=== PATIENT | female | born 1935 | race Two or more races ===

== ENCOUNTER 2023-07-23 20:55 | Emergency (ER) | payer OTHER, SELFPAY ==
[2023-07-23] VITALS (7 sets, daily range): BP systolic 119–142; BP diastolic 85–93; PULSE 85–104; RESP 12–16; TEMP 36.2; O2SAT 94–97; BMI 31.2
--- NOTE | 2023-07-23 22:00 | CRLHL7_ITS ---
For Patients: As a result of the Cures Act, medical imaging exams and procedure reports are released immediately into your electronic medical record. You may view this report before your referring provider. If you have questions, please contact your health care provider. Indication: Shoulder pain. Technique: Right shoulder 3 views. Comparison: None. Findings: Bones: No fracture or bone lesion. Degenerative changes in the undersurface of the acromion. Joint spaces: Severe narrowing of the subacromial space consistent with severe rotator cuff disease. Mild arthritic changes in the AC and glenohumeral joints. Soft tissues: Unremarkable. Dictated by Kobe Finch MD @ 07/23/2023 11:01:43 PM (Electronically Signed)
--- NOTE | 2023-07-23 22:00 | CRLHL7_ITS ---
For Patients: As a result of the Century Cures Act, medical imaging exams and procedure reports are released immediately into your electronic medical record. You may view this report before your referring provider. If you have questions, please contact your health care provider. INDICATION: History of head bleed, neck pain. TECHNIQUE: CT head without contrast. Permanently recorded images are archived. COMPARISON: None. FINDINGS: CSF spaces: Within normal limits for age. Brain parenchyma and extra-axial spaces: Mild global brain parenchymal volume loss. Areas of mild hypoattenuation within the bilateral supratentorial white matter, consistent with chronic small vessel ischemic disease. The krishnan-white differentiation is normal. No sign of mass, hemorrhage, or midline shift. No extra-axial fluid collection. Skull base and calvarium: The visualized paranasal sinuses demonstrate no acute or significant findings. The mastoid air cells are clear. Bilateral lens replacement. No skull fractures. Atherosclerotic calcification of the bilateral carotid siphons. IMPRESSION: No evidence of an acute intracranial abnormality. Brain parenchyma findings consistent with chronic small vessel ischemic disease on a background of age-related involutional change. Please note that all CT scans at this facility use dose modulation, iterative reconstruction, and/or weight-based dosing when appropriate to reduce radiation dose to as low as reasonably achievable. Dictated by Jeffrey Higgins MD @ 07/23/2023 11:06:13 PM (Electronically Signed)
--- NOTE | 2023-07-23 22:01 | CRLHL7_ITS ---
For Patients: As a result of the Century Cures Act, medical imaging exams and procedure reports are released immediately into your electronic medical record. You may view this report before your referring provider. If you have questions, please contact your health care provider. INDICATION: Neck pain. TECHNIQUE: CT cervical spine without contrast. Permanently recorded images are archived. COMPARISON: None. FINDINGS: Vertebrae: Straightening of the cervical lordosis. Grade 1 anterolisthesis of C4 on C5 and C6 on C7. No acute fracture or suspicious lesion. Discs and facet joints: Moderate degenerative disc disease at C5-6. There are mild multilevel degenerative changes in the facets. Extraspinal findings: Paraspinous soft tissues are unremarkable. IMPRESSION: 1. No sign of acute injury. 2. Moderate degenerative disc disease at C5-6. Please note that all CT scans at this facility use dose modulation, iterative reconstruction, and/or weight-based dosing when appropriate to reduce radiation dose to as low as reasonably achievable. Dictated by Jeffrey Higgins MD @ 07/23/2023 11:09:22 PM (Electronically Signed)
--- NOTE | 2023-07-23 22:21 | ED.GENADULT ---
HPI - General Adult General Date Seen: 07/23/23 Chief complaint: Neck Injury/Pain Stated complaint: Neck pain Time Seen by Provider: 07/23/23 21:12 Source: patient, family and lens gauger Mode of arrival: ambulatory Limitations: language barrier History of Present Illness HPI narrative: Patient is an 88-year-old woman here with her daughter and niece for evaluation of what she describes as neck pain, some pain in the right side of her head in the back, and primarily actually more shoulder pain. She does not have pain that radiates further down the arm. She developed pain when she woke up about 6 days ago, they describe feeling hot and cold at home but no documented fevers. She has not had any neurologic changes in her hand, notes that she has numbness in both hands which has been going on for quite some time. No weakness. No injury. Pain is worsened by trying to use her right arm or moving leave shoulder. She was seen in clinic last week and was given cyclobenzaprine which she has been taking along with Tylenol but her daughter says that she still is having too much pain to sleep. Her daughter also says that a couple of years ago, while still in [facility] she had some kind of problem which she describes as blood clots in her head, it is unclear to me whether this was bleeding or ischemic, she does not call it a stroke. No neurologic deficit. There was apparently discussion in [facility] of either emboli or embolization, again she really does not know and then they left [facility] and it has not been checked since coming to the [place] Related Data Home Medications Medication Instructions Recorded Confirmed metformin 1,000 mg tablet 1,000 mg PO BID 03/31/23 07/23/23 omeprazole 20 mg capsule,delayed 20 mg PO DAILY PRN 03/31/23 07/23/23 release cyclobenzaprine 5 mg tablet 5 mg PO BID 07/23/23 07/23/23 glipizide 2.5 mg tablet, extended 2.5 mg PO DAILY 07/23/23 07/23/23 release 24 hr Allergies Allergy/AdvReac Type Severity Reaction Status Date / Time No Known Drug Allergies Allergy Verified 07/23/23 21:17 Review of Systems Status of ROS: Reports: 10 or more systems reviewed and unremarkable except as noted in History and below [facility] Medical History Hypertension ?I10 - Essential (primary) hypertension (ICD-10) Diabetes mellitus, type 2 ?E11.9 - Type 2 diabetes mellitus without complications (ICD-10) Osteoporosis ?M81.0 - Age-related osteoporosis without current pathological fracture (ICD-10) Surgical History No significant past surgical history Social History Smoking Status: Never smoker Second hand tobacco smoke exposure: No How often do you have a drink containing alcohol: never How often do you have six or more drinks on one occasion: Never AUDIT-C Alcohol total score: 0 Non-prescribed substance use: denies use Exam Narrative: Exam Narrative: Vital signs as noted above. In general, an alert, well-appearing patient. Head: Normocephalic, atraumatic. Eyes: Pupils are equal reactive. Extraocular movements are full. Conjunctivae are normal. ENT: Mucous membranes are moist. Neck: Supple without lymphadenopathy. Heart: Regular rate and rhythm. No murmur or rub. Lungs: Clear bilaterally. No increased work of breathing, crackles or wheezes. Abdomen: Soft and nontender. No organomegaly. Extremities: Well perfused. No edema. No calf tenderness. Pulses intact. Neurologic: Patient is alert and oriented to person and place. Speech is fluent. Face is symmetric. Moves all extremities equally. Affect: Normal. Skin: Warm and dry. Well perfused. Const: Vital Signs, click to edit/add: Vital Signs - 24 hr 07/23/23 21:10 07/23/23 22:04 07/23/23 22:05 Temperature 97.2 F L Pulse Rate 97 104 H Pulse Rate [Pulse Oximeter] 102 H Respiratory Rate 16 Blood Pressure 119/85 Blood Pressure [Le ft Upper Arm] 122/93 H Pulse Oximetry 94 96 96 Oxygen Delivery Me thod Room Air 07/23/23 22:35 07/23/23 22:36 07/23/23 23:01 Temperature Pulse Rate 95 92 85 Pulse Rate [Pulse Oximeter] Respiratory Rate 14 12 Blood Pressure 127/92 H 142/91 H Blood Pressure [Le ft Upper Arm] Pulse Oximetry 95 96 96 Oxygen Delivery Me thod 07/23/23 23:31 07/24/23 00:01 Temperature Pulse Rate 89 86 Pulse Rate [Pulse Oximeter] Respiratory Rate 14 12 Blood Pressure 133/91 H 137/90 H Blood Pressure [Le ft Upper Arm] Pulse Oximetry 97 96 Oxygen Delivery Me thod Course Course ED Course: Given the uncertainty surrounding what ever happened intracranially a couple of years ago, language barrier, age, etcetera I elected to do a CT scan of the head as well as the cervical spine. However I also did x-rays of the right shoulder is to me it seems that most of her pain comes from the shoulder region, and is exacerbated by trying to move that joint. CT of the head by my review did not show any evidence of hemorrhage or mass effect, read as negative by Radiology for acute findings. CT of the cervical spine was read by Radiology is overall unremarkable, some moderate degenerative changes noted at C5-C6. She does not have radicular symptoms, and I do not think her pain is coming primarily from her neck. X-rays of her right shoulder show significant degenerative changes, read as follows by Radiology:Findings: Bones: No fracture or bone lesion. Degenerative changes in the undersurface of the acromion. Joint spaces: Severe narrowing of the subacromial space consistent with severe rotator cuff disease. Mild arthritic changes in the AC and glenohumeral joints. Gave her 2.5 mg of oxycodone here, she did feel that this was significantly helpful. I will provide a few for her use at home, discussed that these can cause sleepiness, dizziness, constipation and that tolerance will develop if she takes them frequently. I recommended orthopedic follow-up to see if an injection might be helpful for her shoulder. Vital Signs Vital signs: Initial Vital Signs Temperature 97.2 F L 07/23/23 21:10 Temperature Source Temporal Artery Scan 07/23/23 21:10 Pulse Rate 102 H 07/23/23 21:10 Respiratory Rate 16 07/23/23 21:10 Blood Pressure 122/93 H 07/23/23 21:10 Blood Pressure Mean 102 07/23/23 21:10 Blood Pressure Position Sitting 07/23/23 21:10 Pulse Oximetry 94 07/23/23 21:10 Oxygen Delivery Method Room Air 07/23/23 21:10 Vital Signs Temperature 97.2 F L 07/23/23 21:10 Pulse Rate 102 H 07/23/23 21:10 Respiratory Rate 16 07/23/23 21:10 Blood Pressure 122/93 H 07/23/23 21:10 Pulse Oximetry 94 07/23/23 21:10 Oxygen Delivery Method Room Air 07/23/23 21:10 Temperature 97.2 F L 07/23/23 21:10 Pulse Rate 86 07/24/23 00:01 Respiratory Rate 12 07/24/23 00:01 Blood Pressure 137/90 H 07/24/23 00:01 Pulse Oximetry 96 07/24/23 00:01 Oxygen Delivery Method Room Air 07/23/23 21:10 Discharge Plan Discharge Clinical Impression: Pain in shoulder region Patient Disposition: Home, Self-Care Condition: Improved Instructions: Shoulder Pain (ED) Additional Instructions: Tylenol 1000 mg 3 times daily. Oxycodone if needed for more severe pain, especially at bedtime. Be aware that this can cause confusion, lightheadedness, dizziness, constipation, and can be habit-forming, take only as directed. I would recommend follow-up with Orthopedic Clinic, call [phone] to schedule. [place] Tylenol 1000 mg 3 veces al d?a. Puede michael oxicodona si es necesario para el dolor m?s intenso, especialmente a la hora de acostarse. Tenga en cuenta que esto puede causar confusi?n, mareos, estre?imiento y puede crear h?bito; t?ngo s?lo seg?n las indicaciones. Recomendar?a seguimiento con Cl?juan carlos Ortop?dica, llame el lunes al [phone] para programar ivey angel. Oxycodone: Doretha media tableta por boca robe veces al zana. Prescriptions: No Action metformin 1,000 mg tablet 1,000 mg PO BID omeprazole 20 mg capsule,delayed release(DR/EC) 20 mg PO DAILY PRN glipizide 2.5 mg tablet extended release 24hr 2.5 mg PO DAILY cyclobenzaprine 5 mg tablet 5 mg PO BID Follow Up/Referrals: Beena Samayoa NP [Primary Care Provider] - Stand Alone Forms: [facility] Info Instructions
[2023-07-23] MEDS: OXYCODONE 5 MG TABLET 2.5 MG PO (22:29)
--- NOTE | 2023-07-23 23:29 | ED.NURSE ---
Report received from CORA Schmidt.
[2023-07-24 00:01] VITALS: BP 137/90; PULSE 86; RESP 12; O2SAT 96
== END 2023-07-24 00:15 | disposition home or self-care (01) ==
PROVIDERS: Emergency Provider Emergency Medicine; PCP Nurse Practitioner Family
DX: M25.511 Pain in right shoulder (principal)
CPT/HCPCS: 70450; 72125; 73030; 99283; 99284; A9270

== ENCOUNTER 2023-10-17 17:05 | Emergency (ER) | payer OTHER, SELFPAY ==
[2023-10-17 17:30] VITALS: BP 181/119; PULSE 90; RESP 20; TEMP 37.1; O2SAT 96
[2023-10-17 17:45] VITALS: O2SAT 96
--- NOTE | 2023-10-17 17:48 | CRLHL7_ITS ---
For Patients: As a result of the Century Cures Act, medical imaging exams and procedure reports are released immediately into your electronic medical record. You may view this report before your referring provider. If you have questions, please contact your health care provider. INDICATION: Rib pain. TECHNIQUE: Chest and left ribs 3 views. COMPARISON: None. FINDINGS: Cardiovascular and mediastinum: Heart size and vasculature are normal in caliber and appearance. Mediastinum is within normal limits. Lungs and pleural spaces: Lungs are clear. No sign of infiltrate or mass. No sign of pleural effusion. No pneumothorax. Bones and soft tissues: Detailed oblique images of the left ribs demonstrate no fractures or bone lesions. IMPRESSION: Unremarkable chest and left ribs. Dictated by Kobe Finch MD @ 10/17/2023 8:19:02 PM (Electronically Signed)
--- NOTE | 2023-10-17 17:49 | ED_ITS ---
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 She is here with family members also who understand very little anguish. The patient reports left-sided rib pain that began about a week ago. She does not report any injury event or strenuous activity. The pain is distinctly worse when taking a deep breath or when performing certain maneuvers. She does not report any shortness of breath. Related Data Home Medications Medication Instructions Recorded Confirmed metformin 1,000 mg tablet 1,000 mg PO BID 03/31/23 07/23/23 omeprazole 20 mg capsule,delayed 20 mg PO DAILY PRN 03/31/23 07/23/23 release cyclobenzaprine 5 mg tablet 5 mg PO BID 07/23/23 07/23/23 glipizide 2.5 mg tablet, extended 2.5 mg PO DAILY 07/23/23 07/23/23 release 24 hr glipizide 5 mg tablet 5 mg PO DAILY 10/17/23 10/17/23 irbesartan 300 1 tab PO DAILY 10/17/23 10/17/23 mg-hydrochlorothiazide 12.5 mg tablet Previous Rx's Medication Instructions Recorded hydrocodone 5 mg-acetaminophen 325 1 tab PO Q4-6H PRN pain #20 tabs 10/17/23 mg tablet Allergies Allergy/AdvReac Type Severity Reaction Status Date / Time No Known Drug Allergies Allergy Verified 07/23/23 21:17 Review of Systems Status of ROS: Reports: 10 or more systems reviewed and unremarkable except as noted in History and below Narrative: Constitutional: No fevers, no weight gain or loss. Eyes: No discharge. No vision changes. HENT: No congestion, no sore throat, no ear pain. Cardiovascular: No palpitations. Respiratory: No shortness of breath, no wheezes, no cough. Gastrointestinal: No abdominal pain, no vomiting, no diarrhea. Genitourinary: No dysuria, no hematuria. Musculoskeletal: Normal range of motion. Skin: No rashes, no pruritis. Neurological: No dizziness, weakness, sensory change, speech change. Endo/Heme/Allergies: No bruising or bleeding. No polydipsia. Pysch: no suicidality, no anxiety, no insomnia. All other systems reviewed and are negative. [facility] Medical History Hypertension ?I10 - Essential (primary) hypertension (ICD-10) Diabetes mellitus, type 2 ?E11.9 - Type 2 diabetes mellitus without complications (ICD-10) Osteoporosis ?M81.0 - Age-related osteoporosis without current pathological fracture (ICD- 10) Surgical History No significant past surgical history Social History Smoking Status: Never smoker Second hand tobacco smoke exposure: No How often do you have a drink containing alcohol: never How often do you have six or more drinks on one occasion: Never AUDIT-C Alcohol total score: 0 Non-prescribed substance use: denies use Exam Narrative: Exam Narrative: Constitutional: Well-developed, well-nourished, no acute distress. HEENT: Normocephalic, atraumatic. Neck: Normal range of motion. Nontender. Supple. Heart: Regular. No murmurs. Normal rate. Intact distal pulses. Lungs: Clear to auscultation. No wheezes, rhonchi, or rales. Chest: Patient has distinct pain when palpating along the left lateral ribs and when taking a deep breath. Abdomen: Normal bowel sounds. Nontender. No rebound tenderness. Genitalia: Deferred. Back: No midline tenderness. Normal range of motion. Extremities: Normal range of motion. No injury. Skin: Intact. No rash. Warm. No erythema or pallor. Neurologic: No altered sensation. No weakness. Alert and oriented. Psychiatric: No suicidality. No anxiety or depression. No insomnia. Nursing notes and vitals signs are reviewed. Const: Vital Signs, click to edit/add: Vital Signs - 24 hr 10/17/23 17:30 10/17/23 17:45 10/17/23 18:20 Temperature 98.8 F Pulse Rate [Pulse Oximeter] 90 80 Respiratory Rate 20 20 Blood Pressure [Le ft Forearm] 181/119 H Blood Pressure [Ri ght Forearm] 150/84 H Pulse Oximetry 96 96 96 Oxygen Delivery Me thod Room Air Room Air 10/17/23 19:00 10/17/23 20:09 Temperature Pulse Rate [Pulse Oximeter] 80 73 Respiratory Rate 16 Blood Pressure [Le ft Forearm] Blood Pressure [Ri ght Forearm] 181/101 H 212/85 H Pulse Oximetry 95 94 Oxygen Delivery Me thod Room Air Room Air Course Vital Signs Vital signs: Initial Vital Signs Temperature 98.8 F 10/17/23 17:30 Temperature Source Temporal Artery Scan 10/17/23 17:30 Pulse Rate 90 10/17/23 17:30 Respiratory Rate 20 10/17/23 17:30 Blood Pressure 181/119 H 10/17/23 17:30 Blood Pressure Mean 139 H 10/17/23 17:30 Blood Pressure Position Supine 10/17/23 17:30 Pulse Oximetry 96 10/17/23 17:30 Oxygen Delivery Method Room Air 10/17/23 17:30 Vital Signs Temperature 98.8 F 10/17/23 17:30 Pulse Rate 90 10/17/23 17:30 Respiratory Rate 20 10/17/23 17:30 Blood Pressure 181/119 H 10/17/23 17:30 Pulse Oximetry 96 10/17/23 17:30 Oxygen Delivery Method Room Air 10/17/23 17:30 Temperature 98.8 F 10/17/23 17:30 Pulse Rate 73 10/17/23 20:09 Respiratory Rate 16 10/17/23 19:00 Blood Pressure 212/85 H 10/17/23 20:09 Pulse Oximetry 94 10/17/23 20:09 Oxygen Delivery Method Room Air 10/17/23 20:09 Medications Administered Medications: Discontinued Medications Generic Name Dose Route Start Last Admin Trade Name Freq PRN Reason Stop Dose Admin Hydromorphone HCl 0.2 mg 10/17/23 19:05 10/17/23 19:10 Hydromorphone 0.5 Mg/0.5 Ml Inj IVP 10/17/23 19:06 0.2 mg ONCE ONE Administration Medical Decision Making Lab Data Labs: Lab Results 10/17/23 Range/Units 18:00 POC Troponin I 0.01 (0.01-0.04) ng/ml ECG Data Attestation: I personally reviewed and interpreted this ECG as follows: Interpretation: Normal sinus rhythm. Rate is 86 beats per minute. There are no ST or T-wave abnormalities. Discharge Plan Discharge Clinical Impression: Acute chest wall pain Patient Disposition: Home w/ Parent or Adult Condition: Stable Additional Instructions: Take medication as needed and directed: -[place] (Hydrocodone/acetaminophen): Take 1 to 2 tablets orally every 4 to 6 hours as needed for pain. Do not drive while taking this medication. This medication has 325 mg of tylenol in each tablet, so be mindful of how much tylenol you are taking with it. This medication can also constipate, so adding Miralax while taking it can be helpful. There are four of these tablets in the [facility] machine in the [facility]. There are more that were sent to your pharmacy. -Tordal (Ketorolac): Take 1 tablet by mouth every 4 to 6 hours (maximum of 4 tablets per day). Do not take this medication with ibuprofen because it is the same medication class. Take this medication with food. Follow up with MD return if worsening. [place] los medicamentos seg?n sea necesario y seg?n las indicaciones: -[place] (Hydrocodone/acetaminophen): [place] 1 a 2 tabletas por la boca cada 4 a 6 horas, seg?n sea necesario para el dolor. No conduzca mientras est? tomando arabella medicamento. Arabella medicamento tiene 325 mg de tylenol en cada tableta, as? que tenga en cuenta la cantidad de tylenol que est? tomando con esta medicina. Arabella medicamento tambi?n puede estre?ir, por lo que agregar Miralax mientras se slim puede ser ?til. Hay cuatro de estas tabletas en la m?quina [facility] en la enrrique de espera. Hay m?s que se enviaron a ivey farmacia. -Tordal (Ketorolac): [place] 1 tableta por la boca cada 4 a 6 horas (m?ximo 4 comprimidos al d?a). No tome arabella medicamento con ibuprofeno porque es de la misma clase de medicamento. [place] arabella medicamento con alimentos. Sabrina tera angel con ivey medico de la clinica si empeora. Prescriptions: New hydrocodone-acetaminophen 5-325 mg tablet 1 tab PO Q4-6H PRN (Reason: pain) Qty: 20 0RF No Action irbesartan-hydrochlorothiazide 300-12.5 mg tablet 1 tab PO DAILY glipizide 5 mg tablet 5 mg PO DAILY metformin 1,000 mg tablet 1,000 mg PO BID omeprazole 20 mg capsule,delayed release(DR/EC) 20 mg PO DAILY PRN glipizide 2.5 mg tablet extended release 24hr 2.5 mg PO DAILY cyclobenzaprine 5 mg tablet 5 mg PO BID Follow Up/Referrals: Beena Samayoa NP [Primary Care Provider] - Stand Alone Forms: [facility] Info Instructions
--- NOTE | 2023-10-17 17:50 | ED_ITS ---
HPI - General Adult General Chief complaint: Chest Pain Stated complaint: Rib pain Time Seen by Provider: 10/17/23 17:39 Related Data Home Medications Medication Instructions Recorded Confirmed metformin 1,000 mg tablet 1,000 mg PO BID 03/31/23 07/23/23 omeprazole 20 mg capsule,delayed 20 mg PO DAILY PRN 03/31/23 07/23/23 release cyclobenzaprine 5 mg tablet 5 mg PO BID 07/23/23 07/23/23 glipizide 2.5 mg tablet, extended 2.5 mg PO DAILY 07/23/23 07/23/23 release 24 hr glipizide 5 mg tablet 5 mg PO DAILY 10/17/23 10/17/23 irbesartan 300 1 tab PO DAILY 10/17/23 10/17/23 mg-hydrochlorothiazide 12.5 mg tablet Previous Rx's Medication Instructions Recorded hydrocodone 5 mg-acetaminophen 325 1 tab PO Q4-6H PRN pain #20 tabs 10/17/23 mg tablet Allergies Allergy/AdvReac Type Severity Reaction Status Date / Time No Known Drug Allergies Allergy Verified 07/23/23 21:17 [facility] Medical History Hypertension ?I10 - Essential (primary) hypertension (ICD-10) Diabetes mellitus, type 2 ?E11.9 - Type 2 diabetes mellitus without complications (ICD-10) Osteoporosis ?M81.0 - Age-related osteoporosis without current pathological fracture (ICD- 10) Surgical History No significant past surgical history Social History Smoking Status: Never smoker Second hand tobacco smoke exposure: No How often do you have a drink containing alcohol: never How often do you have six or more drinks on one occasion: Never AUDIT-C Alcohol total score: 0 Non-prescribed substance use: denies use Exam Const: Vital Signs, click to edit/add: Vital Signs - 24 hr 10/17/23 17:30 10/17/23 17:45 10/17/23 18:20 Temperature 98.8 F Pulse Rate [Pulse Oximeter] 90 80 Respiratory Rate 20 20 Blood Pressure [Le ft Forearm] 181/119 H Blood Pressure [Ri ght Forearm] 150/84 H Pulse Oximetry 96 96 96 Oxygen Delivery Me thod Room Air Room Air 10/17/23 19:00 10/17/23 20:09 Temperature Pulse Rate [Pulse Oximeter] 80 73 Respiratory Rate 16 Blood Pressure [Le ft Forearm] Blood Pressure [Ri ght Forearm] 181/101 H 212/85 H Pulse Oximetry 95 94 Oxygen Delivery Me thod Room Air Room Air Course Vital Signs Vital signs: Initial Vital Signs Temperature 98.8 F 10/17/23 17:30 Temperature Source Temporal Artery Scan 10/17/23 17:30 Pulse Rate 90 10/17/23 17:30 Respiratory Rate 20 10/17/23 17:30 Blood Pressure 181/119 H 10/17/23 17:30 Blood Pressure Mean 139 H 10/17/23 17:30 Blood Pressure Position Supine 10/17/23 17:30 Pulse Oximetry 96 10/17/23 17:30 Oxygen Delivery Method Room Air 10/17/23 17:30 Vital Signs Temperature 98.8 F 10/17/23 17:30 Pulse Rate 90 10/17/23 17:30 Respiratory Rate 20 10/17/23 17:30 Blood Pressure 181/119 H 10/17/23 17:30 Pulse Oximetry 96 10/17/23 17:30 Oxygen Delivery Method Room Air 10/17/23 17:30 Temperature 98.8 F 10/17/23 17:30 Pulse Rate 73 10/17/23 20:09 Respiratory Rate 16 10/17/23 19:00 Blood Pressure 212/85 H 10/17/23 20:09 Pulse Oximetry 94 10/17/23 20:09 Oxygen Delivery Method Room Air 10/17/23 20:09 Medications Administered Medications: Discontinued Medications Generic Name Dose Route Start Last Admin Trade Name Freq PRN Reason Stop Dose Admin Hydromorphone HCl 0.2 mg 10/17/23 19:05 10/17/23 19:10 Hydromorphone 0.5 Mg/0.5 Ml Inj IVP 10/17/23 19:06 0.2 mg ONCE ONE Administration Medical Decision Making MDM Narrative Medical decision making narrative: This patient comes in with left-sided rib pain. Chest x-ray returns negative f or pulmonary disease or rib fracture. The patient did receive an IV dose of Dilaudid 0.2 mg. She is maintaining normal vital signs except her blood pressure is elevated currently. She is okay to return home. She did received prescriptions for [place] and Toradol. Lab Data Labs: Lab Results 10/17/23 Range/Units 18:00 POC Troponin I 0.01 (0.01-0.04) ng/ml Imaging Data Chest x-ray: Radiologist's impression: Unremarkable chest and left ribs. Discharge Plan Discharge Clinical Impression: Acute chest wall pain Patient Disposition: Home w/ Parent or Adult Condition: Stable Additional Instructions: Take medication as needed and directed. Follow up with MD return if worsening. Prescriptions: New hydrocodone-acetaminophen 5-325 mg tablet 1 tab PO Q4-6H PRN (Reason: pain) Qty: 20 0RF No Action irbesartan-hydrochlorothiazide 300-12.5 mg tablet 1 tab PO DAILY glipizide 5 mg tablet 5 mg PO DAILY metformin 1,000 mg tablet 1,000 mg PO BID omeprazole 20 mg capsule,delayed release(DR/EC) 20 mg PO DAILY PRN glipizide 2.5 mg tablet extended release 24hr 2.5 mg PO DAILY cyclobenzaprine 5 mg tablet 5 mg PO BID Follow Up/Referrals: Beena Samayoa NP [Primary Care Provider] - Stand Alone Forms: [facility] Info Instructions
[2023-10-17 18:20] VITALS: BP 150/84; PULSE 80; RESP 20; O2SAT 96
[2023-10-17 18:20] LABS: Troponin, Point-of-Care* 0.01 ng/ml (0.01-0.04)
[2023-10-17 19:00] VITALS: BP 181/101; PULSE 80; RESP 16; O2SAT 95
[2023-10-17] MEDS: HYDROmorphone 0.5 mg/0.5 ml inj 0.2 MG IVP (19:10)
[2023-10-17 20:09] VITALS: BP 212/85; PULSE 73; O2SAT 94
--- NOTE | 2023-10-17 20:50 | ED.NURSE ---
Pt up to bathroom via bedside commode. Pt states she is a little dizzy following pain medication.
== END 2023-10-17 21:20 | disposition home or self-care (01) ==
PROVIDERS: Emergency Provider Emergency Medicine Emergency Medical Services; PCP Nurse Practitioner Family
DX: R07.9 Chest pain, unspecified (principal)
CPT/HCPCS: 71101; 84484; 93005; 94761; 95992; 96374; 99284; J1170